=== PATIENT | male | born 1955 | race Caucasian/White ===

== ENCOUNTER 2021-03-14 20:05 | Inpatient (IN) | payer OTHER ==
[~2021-03-14] VITALS: Ht 182.9 cm; Wt 101.6 kg
[2021-03-14 20:10] VITALS: BP 175/115
[2021-03-14 20:43] LABS: ABSOLUTE NEUTROPHILS 4.2 thou/uL (1.4-8.2); BASOPHILS 0.8 % (0.0-2.0); EOSINOPHILS 4.1 % (0.0-3.0); HEMATOCRIT 41.7 % (42.0-52.0); HEMOGLOBIN 13.6 gm/dL (14.0-18.0); LYMPHOCYTES 22.3 % (24.0-44.0); MCH 27.3 pg (26.0-34.0); MCHC 32.5 g/dL (28.0-37.0); MCV 83.9 fL (80.0-100.0); MONOCYTES 16.7 % (1.0-8.0); PLATELET COUNT 287 thou/uL (150-400); POLYS 56.1 % (36.0-66.0); RBC 4.96 mil/uL (4.50-6.00); RDW 17.3 % (10.5-14.5); WBC 7.4 thou/uL (4.0-11.0)
[2021-03-14 20:49] LABS: CALCIUM 8.6 mg/dL (8.5-10.1); CREATININE 1.4 mg/dL (0.7-1.3); POTASSIUM 3.6 mmol/L (3.5-5.1)
[2021-03-14 20:55] LABS: APTT 25.6 Seconds (24.5-32.8); PROTIME 10.9 Seconds (10.5-12.1)
[2021-03-14 22:55] LABS: ALBUMIN 3.5 g/dL (3.4-5.0); TOTAL BILIRUBIN 0.3 mg/dL (0.2-1.0); TOTAL PROTEIN 7.2 g/dL (6.4-8.2)
[2021-03-14 23:55] VITALS: BP 142/80
[2021-03-15] VITALS (16 sets, daily range): BP systolic 141–173; BP diastolic 83–104
--- NOTE | 2021-03-15 10:15 | NUR ---
alert/oriented x4, nihss-2, left mouth droop, speech clear when deliberate and slow, when speaking faster speech garbled. SR, passed speech swallow study, voiding adequate amount. Dr. Glover inquired regarding pt status, updated. MRI pending.
[2021-03-15] MEDS ORDERED: BENICAR20 MG PO (11:13)
--- NOTE | 2021-03-15 12:05 | NUR ---
65 year old male patient of Dr. Sanchez admitted with Stroke and was given TPA. Per the record the patient has been A& O x4. MRI scheduled for 03-15-21. Notably patient's brother Hari at [phone] is listed as next of kin and did accompany patient to the ED. PT/OT and [employer]IL[employer] SUPERVISOR have been ordered on the patient. Spoke with brother Hari who did accompany the patient to the ED. He reports patient has no history of needs including, Home Health, DME, 02, Skilled care or acute rehab. Notes that he lives less than 2 minutes away from patient and it was the patient who called him and asked that he be brought to the ED for care. The patient has lived independently at home alone, performing all his own ADL's and drives. Explained CM role and also as care progresses and evaluations are completed that CM will work with the patient and he on discharge plans of care. CM will continue to follow..
--- NOTE | 2021-03-15 16:00 | NUR ---
to mri per wheelchair at 1430. while still in radiology, pt also had lower extremity doppler ultrasound. returned at 1600. nihss-2. alert/oriented. speech slow, deliberate. watching tv and dozing intermittently.
[2021-03-16] VITALS (9 sets, daily range): BP systolic 141–174; BP diastolic 94–113
[2021-03-16 06:23] LABS: HEMATOCRIT 41.1 % (42.0-52.0); HEMOGLOBIN 13.9 gm/dL (14.0-18.0); MCHC 33.7 g/dL (28.0-37.0); MCV 83.2 fL (80.0-100.0); RBC 4.94 mil/uL (4.50-6.00); RDW 17.2 % (10.5-14.5); WBC 9.6 thou/uL (4.0-11.0)
[2021-03-16 06:57] LABS: ANION GAP 11 mmol/L (7-16); BUN 11 mg/dL (7-18); CALCIUM 8.8 mg/dL (8.5-10.1); CHLORIDE 101 mmol/L (98-107); CHOLESTEROL 185 mg/dL (<200); CO2 26 mmol/L (21-32); CREATININE 1.3 mg/dL (0.7-1.3); GLUCOSE 89 mg/dL (74-106); HDL CHOLESTEROL 47 mg/dL (>40); LDL CHOLESTEROL 112 mg/dL (<100); POTASSIUM 3.8 mmol/L (3.5-5.1); SODIUM 138 mmol/L (136-145); TC:HDL 3.9 Ratio (Not establshd); TRIGLYCERIDE 132 mg/dL (<150); VLDL 26 mg/dL (<40)
[2021-03-16 06:59] LABS: SERUM ASSESSMENT Clear
--- NOTE | 2021-03-16 08:08 | EKG ---
[address] [place] [address] ELECTROCARDIOGRAM REPORT Name: DERRICK DAWN Room #: 250-P ADM IN M.R.#: [id number] Admission: 03/14/21 Attend Phys: Ry Olvera MD Discharge: Date of : 55 Report #: [id number] [facility] ED Test Date: 2021-03-14 Test Time: 20:46:19 Pat Name: DERRICK DAWN Department: Room: 250 P Gender: M Canvas Cutter Hand: bailey irby : 1955 Requested By: Ry Olvera Order Number: [id number] MD: Pascual Rao Measurements Intervals [place] Rate: 103 P: 7 GA: 141 QRS: -3 QRSD: 93 T: 28 QT: 378 QTc: 495 Interpretive Statements Sinus tachycardia Abnormal R-wave progression, early transition Minimal ST depression, lateral leads Borderline prolonged QT interval No previous ECG available for comparison Electronically Signed On 03-16-2021 8:08:22 CDT by Pascual Rao [email or web address] <ELECTRONICALLY SIGNED> By: Pascual Rao MD, [facility] 03/16/21807 45 45 Pascual Rao MD, FAC /EPI
--- NOTE | 2021-03-16 09:16 | 2DMMODE ---
[facility] [place] [address] 2 D/M-MODE ECHOCARDIOGRAM Name: DERRICK DAWN Room #: 250-P ADM IN M.R.#: [id number] Admission: 03/14/21 Attend Phys: Ry Olvera MD Discharge: Date of : 55 Report #: [id number] THIS REPORT FOR: cc: Clyde Sanchez MD, Rene P. MD Lammoglia, Francisco J. MD ~ APPROVED REPORT Study performed: 03/16/2021 08:20:22 EXAM: Comprehensive 2D, Doppler, and color-flow Echocardiogram Patient Location: ICU Room #: 250 Status: routine BSA: 2.24 HR: 86 bpm BP: 174/113 mmHg Rhythm: NSR Other Information Study Quality: Technically Difficult Technically limited study due to body habitus, inability to position patient. Indications CVA/TIA Hypertension/HDD Echo Enhancing Agent Indication: Rule out Shunt Agent(s) / Amount(s) Used: Agitated Saline 7 cc Aortic Valve AoV Peak Florentino.: 1.15 m/s AO Peak Gr.: 5.31 mmHg LVOT Max P.63 mmHg LVOT Max V: 0.95 m/s Mitral Valve E/A Ratio: 0.6 MV Decel. Time: 220.22 ms MV E Max Florentino.: 0.66 m/s MV A Florentino.: 1.07 m/s MV PHT: 63.86 ms IVRT: 175.32 ms [facility] [address] [place] [address] 2 D/M-MODE ECHOCARDIOGRAM Name: DERRICK DAWN Room #: 250-P ADM IN M.R.#: [id number] Admission: 03/14/21 Attend Phys: Ry Olvera MD Discharge: Date of : 55 Report #: [id number] Pulmonary Vein P Vein S: 0.50 m/s P Vein A: 0.27 m/s P Vein D: 0.26 m/s P Vein A Dur.: 124.6 msec P Vein S/D Ratio: 1.92 Left Ventricle The left ventricle is normal size. There is normal LV segmental wall motion. There is normal left ventricular wall thickness. The left ventricular systolic function is normal. The left ventricular ejection fraction is within the normal range. LVEF is 60-65%. Grade I - abnormal relaxation pattern. Right Ventricle The right ventricle is normal size. The right ventricular systolic function is normal. Atria The left atrium size is normal. Interatrial septum is intact without evidence of ASD or PFO. The right atrium size is normal. Aortic Valve The aortic valve is normal in structure. The Aortic valve is sclerotic. Trace aortic regurgitation. There is no aortic valvular stenosis. Mitral Valve The mitral valve is normal in structure. There is no mitral valve regurgitation noted. No evidence of mitral valve stenosis. Tricuspid Valve The tricuspid valve is normal in structure. There is no tricuspid valve regurgitation noted. Pulmonic Valve The pulmonary valve is normal in structure. There is no pulmonic valvular regurgitation. Great Vessels The aortic root is normal in size. IVC is normal in size and collapses >50% with inspiration. Pericardium There is no pericardial effusion. <Conclusion> [facility] [address] [place] [address] 2 D/M-MODE ECHOCARDIOGRAM Name: DERRICK DAWN Room #: 250-[facility] IN .R.#: [id number] Admission: 03/14/21 Attend Phys: Ry Olvera MD Discharge: Date of : 55 Report #: [id number] The left ventricle is normal size. There is normal left ventricular wall thickness. LVEF is 60-65%. The right ventricle is normal size. The left atrium size is normal. The aortic valve is normal in structure. The Aortic valve is sclerotic. Trace aortic regurgitation. The mitral valve is normal in structure. The tricuspid valve is normal in structure. The pulmonary valve is normal in structure. The aortic root is normal in size. There is no pericardial effusion. <ELECTRONICALLY SIGNED> By: Rell Christianson MD 03/16/21914 4 4 Rell Christianson MD /INF
--- NOTE | 2021-03-16 10:48 | NUR ---
TPA completed. Discussed during los with the hospitalist. 5N acute rehab consult, already ordered. Will cont following as needed for dc needs.
--- NOTE | 2021-03-16 10:52 | HC ---
[facility] [place] [address] CONSULTATION Name: DERRICK DAWN Room #: 250-P [facility] IN M.R.#: [id number] Admission: 03/14/21 Attend Phys: Ry Olvera MD Discharge: Date of : 55 Report #: [id number] THIS REPORT FOR: cc: Clyde Sanchez MD, Rene P. MD Khosla, Parveen K. MD ~ DATE OF SERVICE: 03/14/2021 HISTORY OF PRESENT ILLNESS: This is a 65-year-old male patient who was seen by me in the emergency room for a possible stroke. He gives a history that he had an acute onset of inability to swallow as well as a pretty pronounced speech difficulty, which started suddenly some time after 7:00. It was acute in onset. He did not have any headache with it. He came to Emergency Room, his blood pressure was elevated. They did a CT scan of the head and CT angiogram of the head and neck that did not show any bleeding or any large thrombus in any of the blood vessel. They have raised some question of basilar tip thrombus, but CT angiogram did not demonstrate any thrombus. REVIEW OF SYSTEMS: Indicate he is hypertensive for a long time. He has difficulty controlling his blood pressure. His mentation was okay. His speech was very difficult to understand. On occasions, it will become better, but on other occasion it go back where it was basically not understandable. He had swallowing difficulty, which he thinks may have improved. He denied any prior stroke or cardiac problem. Emergency Room provider has already called his primary doctor, Dr. Villasenor and he indicated that he is not on any blood thinner, the patient said the same thing. This was his relevant 14-point review of systems. Emergency provider has gone through the exclusion criteria with him and I did the same after that. He does give a history that he has macular degeneration and he has some injection there. He said he did not have any hemorrhage there. He once had what looks like fissure. He said when he will have a dry stool, he will have a streak of blood on that. Otherwise, he denies any ulcer or GI bleeding and he never had any brain or spine surgery. PAST MEDICAL HISTORY: Negative for stroke. FAMILY HISTORY: Unremarkable. SOCIAL HISTORY: He says he does not drink any alcohol. PHYSICAL EXAMINATION: NEUROLOGIC: He is alert. He is responsive. He gets stuck on speech and most of the time it is not understandable when I saw him. In between, he becomes more clear, but it is clearly fluctuating. He has an obvious left facial palsy. I do not see any Funmilayo syndrome in him. He had swallowing difficulty, but he is able to swallow saliva. He still had difficulty swallowing when we gave him few water sips. He does not appear to have any paralysis on the left or right [address] [address] CONSULTATION Name: DERRICK DAWN Room #: 250-P [facility] IN M.R.#: [id number] Admission: 03/14/21 Attend Phys: Ry Olvera MD Discharge: Date of : 55 Report #: [id number] side. He says his sensation is intact. His reflexes are symmetrical. He does not appear to have any marked cerebellar sign, although I did not make him walk. I do not believe he has a significant hemianopsia. His blood pressure was running pretty high first, then it came down with a Cardene drip, rather reasonably fast. IMPRESSION AND PLAN: The patient's clinical findings are suggestive of cerebrovascular accident. Whether it is a lateral medullary syndrome or brainstem cerebrovascular accident is not clear. I had a long and multiple discussions with the staff and patient. I offered to call any family, but he indicated that he does not have children and has brothers and sister and he makes his own decisions. We talked about TPA first. I told him TPA is approved for CVA with a stroke scale of more than 5 and within 3 hours' window, but it has been given up to 4-1/2 hour commonly. I discussed with him that there has been controversy what to do with patient with low NIH stroke scale. Many of the physicians want to go on the disability than on the NIH stroke scale. At one time, we used to give virtually everybody who has a low NIH scale, a TPA because once the symptoms became worse, the time was gone to give TPA and symptom frequently became worse. Then, some studies came which indicated patient who has low NIH scale, their prognosis is better. I told him that he should assess his disability on the basis of his speech difficulty and see if that will be acceptable to him. He told me that it is not acceptable at all because he is barely able to speak and it will affect his quality of the life significantly to an extent where it will be unacceptable to him. We talked about TPA. We talked about its potential risk of a bleed into the brain. I talked to him when the bleed occur and if it is a significant bleed, that is a catastrophic thing and the problem is even more complicated now. This is because of COVID crisis. We do not have any neurosurgeon and we have a lot of difficulty transferring the very sick patient to other hospital because they typically tell us they are closed. After discussing all of this and numerous other aspect with the patient, he decided to proceed with the TPA. It was mainly because the disability caused by his speech, it was unacceptable to him. I tried to talk to him to see if he was a left hander and he was forced to become right hander as many of the people in his generation were. He could not tell. This is because some time his speech difficulty looks expressive aphasia because he gets stuck on a word and then he cannot complete the word and he is barely understandable most of the time, although he is fluctuating. On the phone, I was told his speech difficulty is not bad, but he is definitely dysarthric, but when I saw him on my examination, this is severe. I stayed there and his blood pressure came down pretty fast. I talked to Emergency Room provider and the nurse multiple times. I talked to the nurse practitioner who is going to admit the patient. I told them that the TPA orders [facility] [address] [facility] [place] [address] CONSULTATION Name: DERRICK DAWN Room #: 250-P ADM IN M.R.#: [id number] Admission: 03/14/21 Attend Phys: Ry Olvera MD Discharge: Date of : 55 Report #: [id number] should be followed very strictly. We must keep the blood pressure less than 180 systolic and blood pressure parameter should be closely followed by Shayy shin. He should be closely watched in ICU and they will fill up the post-TPA orders and I talked to both the emergency room physician as well as nurse practitioner in that regard. Hopefully, he will not have a complication of the bleed and we will get some benefit out of this TPA. If bleed occur, it will be catastrophic. It is all this catastrophic if it is symptomatic bleed, but we are even in a bigger problem because it will be very difficult to transfer him for any neurosurgical evaluation, if that evaluation and management is required, hopefully that would not happen. I have discussed that aspect with the patient in great detail, in fact I have discussed all the aspect with the patient in great detail. He is competent to make his decision and he wanted to follow this plan. I spent more than 70 minutes of time taking care of this patient and majority was spent counseling and coordinating. More than half an hour of critical care was done trying to get this patient to a point where TPA can be given by adjusting his blood pressure and then giving the TPA and watching him closely for any reaction. Thank you very much for this referral. <ELECTRONICALLY SIGNED> By: Holger Glover MD 03/16/21 [id number] Holger Glover MD /nt
--- NOTE | 2021-03-16 11:52 | NUR ---
ASSUMED CARE OF PT AT 0700 PT CALLED ME INTO HIS ROOM AT 1150 AND STATED HE FEELS LIKE HIS LEFT FACIAL DROOP IS WORSE TODAY THAN IT WAS YESTERDAY. I PAGED DR. SNYDER AT THAT TIME.
[2021-03-16 23:06] LABS: GLYCOHEMOGLOBIN (HGB A1C) 5.3 % (4.8-5.6)
--- NOTE | 2021-03-17 03:43 | NUR ---
Pt has had quiet night, continues to progress towards discharge goals. No changes in neuro status, NIHSS = 1-2 due to left mouth droop and slightly slurred speech. Pt remains sinus rhythm - sinus tach with rates 70-105. O2 sat 96% on room air. Able to get up and walk with stand-by assist.
--- NOTE | 2021-03-17 06:01 | NUR ---
Pt remains stable. Plan to transfer to room 211 prior to change of shift. Report called to DAVID Ashford. Pt's brother, Hari, notified of transfer.
--- NOTE | 2021-03-17 07:12 | NUR ---
Report received from Jose Antonio CREMATORY OPERATOR. Pt transferred to 211 towards this change of shift. Alert and oriented. L/S facial droop. SLurred speech. Up stb. Oriented to and call light. Call light within reach.
[2021-03-17 07:50] VITALS: BP 132/92
[2021-03-17 11:50] VITALS: BP 122/83
[2021-03-17] MEDS ORDERED: AMLODIPINE BESY10 MG PO (12:47)
[2021-03-17] MEDS ORDERED: ADULT LOW DOSE81 MG PO (12:47)
[2021-03-17] MEDS ORDERED: LIPITOR10 MG PO (12:47)
[2021-03-17 14:18] VITALS: BP 122/83
[2021-03-17 14:25] VITALS: BP 122/83
--- NOTE | 2021-03-17 15:47 | NUR ---
Pt cleared medically and by therapy for dc to home. Outpt ST recommended. Script faxed to our outpt therapy dept as pt notes this location is close to home and preferred. Confirmed with Kanika and she will call him to schedule his initial eval appt. No other needs noted.
== END 2021-03-17 15:40 | disposition home or self-care (01) | DRG 61 ==
LOC: ER 20:05 → EROBS 23:04 → 2N 23:04 → ICU 23:04 → 2N 03-17 06:31
PROVIDERS: Nurse Practitioner; Nurse Practitioner Family; ADMIT Hospitalist; ATTEND Hospitalist
DX: I63.89 Other cerebral infarction (principal); R65.11 Systemic inflammatory response syndrome (SIRS) of non-infectious origin with acute organ dysfunction; I16.0 Hypertensive urgency; I10 Essential (primary) hypertension; E78.5 Hyperlipidemia, unspecified; E66.9 Obesity, unspecified; R13.10 Dysphagia, unspecified; R47.1 Dysarthria and anarthria; K08.409 Partial loss of teeth, unspecified cause, unspecified class; Z20.822 Contact with and (suspected) exposure to COVID-19; N40.1 Benign prostatic hyperplasia with lower urinary tract symptoms; N39.498 Other specified urinary incontinence; Z88.0 Allergy status to penicillin; Z91.012 Allergy to eggs; Z68.30 Body mass index [BMI] 30.0-30.9, adult; Z83.3 Family history of diabetes mellitus; Z90.49 Acquired absence of other specified parts of digestive tract; Z79.82 Long term (current) use of aspirin; Z79.899 Other long term (current) drug therapy
CPT/HCPCS: 10078; 10203